=== PATIENT | male | born 1945 | race Caucasian/White ===

== ENCOUNTER 2019-05-21 11:04 | Inpatient (IN) | payer MEDICARE, SELFPAY ==
[2019-05-21] VITALS (11 sets, daily range): BP systolic 133–166; BP diastolic 51–95; PULSE 59–88; RESP 18–20; TEMP 36.2–36.4; O2SAT 91–97; BMI 32.0
--- NOTE | ~2019-05-21 | XR_ITS ---
EXAMINATION: XR chest 1V portable DATE: 05/21/2019 12:25 INDICATION: Shortness of breath. TECHNIQUE: A single frontal view of the chest was obtained. COMPARISON: None. FINDINGS: A calcified right lung nodule and calcified right hilar lymph nodes are consistent with old granulomatous disease. There is mild atelectasis in the lower lung zones. No pleural effusion or pne umothorax. The heart size is normal. IMPRESSION: 1. Mild atelectasis in the lower lung zones. Reviewed, dictated and finalized at location A. HANGER
--- NOTE | ~2019-05-21 | CT_ITS ---
EXAMINATION: CT brain wo con DATE: 05/21/2019 12:24 INDICATION: Confusion. TECHNIQUE: Computed tomography (CT) of the head was performed without intravenous contrast. The mA wa s adjusted according to patient size. Iterative reconstruction technique was employed. The dose-lengt h product was 605.33 mGy-cm. COMPARISON: None FINDINGS: There are prominent perivascular spaces in the right parietal deep white matter. There is a 2.0 x 1.3 cm arachnoid cyst anterior to left cerebellar hemisphere. There are scattered areas of low attenuation in the cerebral white matter, which is within normal limits for the patient's age. There is no intracranial hemorrhage, acute infarction, or abnormal intracranial mass lesion. The ventricle s are normal in size. There are likely changes of ocular lens replacement surgeries. There is mild mu cosal thickening in the paranasal sinuses. The mastoid air cells are normal. IMPRESSION: 1. No acute intracranial pathology. Reviewed, dictated and finalized at location A. H CHEMIST
--- NOTE | ~2019-05-21 | MR_ITS ---
EXAMINATION: MR brain/brain stem wo con DATE: 05/23/2019 08:20 INDICATION: Acute confusion. Delayed speech and word searching. TECHNIQUE: Magnetic resonance imaging (MRI) of the brain and brainstem was performed without intraven ous contrast. Sequences included sagittal and axial T1-weighted SE, axial diffusion-weighted FS SE, a xial T2*-weighted GRE, axial T2-weighted FLAIR, and axial T2-weighted FSE. Apparent diffusion coeffic ient (ADC) maps were created. COMPARISON: Head CT dated 05/21/2019 FINDINGS: There are no areas of restricted diffusion to suggest acute infarction. Small old lacunar infarct in the right para trigonal white matter No intracranial hemorrhage or abnormal intracranial mass lesion. There are scattered areas of nonspecific increased T2-weighted signal intensity in the cerebral whit e matter, predominantly involving the deep and periventricular white matter. There are no intraparenc hymal signal abnormalities seen on the other pulse sequences. The ventricles are symmetric and normal in size. There are no abnormal extra-axial fluid collections. Flow voids are seen in the cerebral ar teries on the T2-weighted sequences consistent with their expected patency. Right vertebral artery is dominant. Changes of bilateral intraocular lens replacement. Mild mucosal thickening the bilateral e thmoid sinuses. Visualized orbits and soft tissues are unremarkable. IMPRESSION: 1. Small old lacunar infarct in the right peritrigonal white matter. No acute intracranial process. Reviewed, dictated and finalized at location A. H HEAD MAKER IMPRESSION: 1. Small old lacunar infarct in the right peritrigonal white matter. No acute i ntracranial process.
--- NOTE | 2019-05-21 11:15 | ECG_ITS ---
Measurements Intervals [place] Rate: 60 P: 27 KS: 179 QRS: -19 QRSD: 109 T: 5 QT: 404 QTc: 405 Interpretive Statements SINUS RHYTHM LOW QRS VOLTAGE IN PRECORDIAL LEADS ANTEROSEPTAL INFARCT, AGE INDETERMINATE BORDERLINE ST-T WAVE ABNORMALITY- INFERIOR LEADS ABNORMAL ECG Electronically Signed On 05-21-2019 11:53:01 TELETYPESETTER by Josh Aldridge D.O.
[2019-05-21 11:32] LABS: Basophils Absolute Auto 0.09 K/mm3 (0.00-0.10); Eosinophils Absolute Auto 0.16 K/mm3 (0.02-0.50); Eosinophils Percent Auto 1.7 % (1.0-6.0); Hematocrit 41.3 % (37.0-46.0); Hemoglobin 13.5 g/dL (12.4-15.3); Immature Granulocyte Absolute 0.09 K/mm3 (0.00-0.00); Lymphocytes Absolute Auto 0.95 K/mm3 (1.10-4.50); Lymphocytes Percent Auto 10.3 % (18.0-42.0); Mean Corpuscular HGB Conc 32.7 g/dL (32.0-36.0); Mean Corpuscular Hemoglobin 31.4 pg (27.0-31.0); Mean Platelet Volume 9.4 fl (8.7-11.0); Monocytes Absolute Auto 0.89 K/mm3 (0.10-0.90); Monocytes Percent Auto 9.6 % (2.0-11.0); Neutrophils Absolute Auto 7.1 K/mm3 (1.7-7.2); Neutrophils Percent Auto 76.4 % (50.0-70.0); Platelet Count Result 292 K/mm3 (150-420); White Blood Count 9.3 K/mm3 (4.8-10.8)
[2019-05-21 11:46] LABS: Partial Thromboplastin Time 23.8 SEC (22.3-31.6); Prothrombin Time 10.4 Seconds (9.64-11.0)
[2019-05-21 11:56] LABS: Alanine Aminotransferase 14 U/L (16-63); Albumin Level 3.6 g/dL (3.4-5.0); Alkaline Phosphatase 110 U/L (46-116); Anion Gap 13.9 mmol/L (7-16); Aspartate Amino Transferase 14 U/L (15-37); Bilirubin,Total 0.5 mg/dL (0.00-1.00); Blood Urea Nitrogen 31 mg/dL (7-18); Calcium 10.4 mg/dL (8.5-10.1); Carbon Dioxide 25 mmol/L (21-32); Chloride 107 mmol/L (98-108); Estimated Glomerular Filt Rate 34; Glucose 131 mg/dL (70-99); Magnesium 2.1 mg/dL (1.8-2.4); Osmolality Calculated 300 mOsm/kg (285-295); Potassium 4.9 mmol/L (3.5-5.1); Sodium 141 mmol/L (136-145); Thyroid Stimulating Hormone 2.74 uIU/mL (0.36-3.74); Total Protein 6.6 g/dL (6.4-8.2)
[2019-05-21 11:58] LABS: BNP 26.7 pg/mL (0-100)
[2019-05-21 11:59] LABS: Troponin I < 0.02 ng/mL (0.00-0.056)
[2019-05-21] MEDS: SODIUM CHLORIDE 0.9% IV 1,000 ML 999 ML IV CONT (12:33)
--- NOTE | 2019-05-21 13:05 | ED.FALL ---
HPI - Fall General Chief Complaint: Fall Stated Complaint: AMB Time Seen by Provider: 05/21/19 11:08 Related Data Home Medications Medication Instructions Recorded Confirmed Dialyvite Vitamin D 05/21/19 allopurinol 300 mg PO DAILY 05/21/19 05/21/19 ascorbic acid (vitamin C) [Vitamin 1 g PO DAILY 05/21/19 05/21/19 C] aspirin 81 mg PO DAILY 05/21/19 05/21/19 carvedilol 25 mg PO Q12H 05/21/19 05/21/19 levothyroxine 75 mcg PO DAILY 05/21/19 05/21/19 lisinopril 10 mg PO BID 05/21/19 05/21/19 magnesium 400 mg PO DAILY 05/21/19 05/21/19 ranitidine HCl 300 mg PO BID 05/21/19 05/21/19 vitamin B complex [B 1 tablet PO DAILY 05/21/19 05/21/19 Complex-Vitamin B12] Allergies Allergy/AdvReac Type Severity Reaction Status Date / Time quinidine Allergy Hives Verified 05/21/19 12:52 Review of Systems Review of Systems: All systems reviewed & are unremarkable except as noted in HPI and below PMFSH Past Medical History Medical History GERD (gastroesophageal reflux disease) HTN (hypertension) Hypothyroidism Exam Const: General: no acute distress and confused Nutritional Appearance: well nourished Orientation/consciousness: oriented x3 HENMT: Head: normal to inspection Eyes: Conjunctivae: conjunctivae normal Neck: Neck: normal visual inspection, no lymphadenopathy and lymphadenopathy Chest: Chest palpation & inspection: normal inspection of the chest Resp: Effort & Inspection: normal respiratory effort Auscultation: clear to auscultation bilaterally Cardio: Rate: regular rate and bradycardic Rhythm: regular rhythm GI: Auscultation: normal bowel sounds : Testes: normal Skin: Rashes: no rashes Neuro: General: oriented x3, moves all extremities, no meningeal signs, no focal motor deficits and CN's II-XI intact bilaterally Speech: normal speech Extrem: General: normal to inspection and no pedal edema Psych: Mental Status: mental status grossly normal Affect: normal affect Attitude: cooperative Thought content: Yes normal Course Vital Signs Vital signs: Vital Signs Temperature 36.2 C L 05/21/19 11:05 Pulse Rate 64 05/21/19 11:05 Respiratory Rate 18 05/21/19 11:05 Blood Pressure 151/88 H 05/21/19 11:05 Pulse Oximetry 91 05/21/19 11:05 Temperature 36.2 C L 05/21/19 11:05 Pulse Rate 64 05/21/19 11:05 Respiratory Rate 18 05/21/19 11:05 Blood Pressure 151/88 H 05/21/19 11:05 Pulse Oximetry 91 05/21/19 11:05 MDM - Fall Differential Diagnosis Differential diagnosis: Likely syncope Lab Data Result diagrams: 05/21/19 11:27 05/21/19 11:27 Labs: Lab Results 05/21/19 05/21/19 05/21/19 Range/Units 11:27 11:27 11:27 WBC 9.3 (4.8-10.8) K/mm3 RBC 4.30 L (4.70-6.10) M/mm3 Hgb 13.5 (12.4-15.3) g/dL Hct 41.3 (37.0-46.0) % MCV 96.0 (78.0-102.0) fL MCH 31.4 H (27.0-31.0) pg MCHC 32.7 (32.0-36.0) g/dL RDW 14.0 (11.6-14.4) % Plt Count 292 (150-420) K/mm3 MPV 9.4 (8.7-11.0) fl Immature Gran % (Auto) 1.0 H (0.0-0.0) % Neut % (Auto) 76.4 H (50.0-70.0) % Lymph % (Auto) 10.3 L (18.0-42.0) % [place] % (Auto) 9.6 (2.0-11.0) % Eos % (Auto) 1.7 (1.0-6.0) % Baso % (Auto) 1.0 (0.0-1.0) % Lymph # (Auto) 0.95 L (1.10-4.50) K/mm3 [place] # (Auto) 0.89 (0.10-0.90) K/mm3 Eos # (Auto) 0.16 (0.02-0.50) K/mm3 Baso # (Auto) 0.09 (0.00-0.10) K/mm3 Abs Immat Gran (auto) 0.09 H (0.00-0.00) K/mm3 Absolute Neuts (auto) 7.1 (1.7-7.2) K/mm3 Absolute Nucleated RBC 0.00 (0.00-0.00) K/mm3 Nucleated RBC % 0.0 (0-0.0) % PT 10.4 (9.64-11.0) Seconds INR 1.0 APTT 23.8 (22.3-31.6) SEC Sodium 141 (136-145) mmol/L Potassium 4.9 (3.5-5.1) mmol/L Chloride 107 (98-108) mmol/L Carbon Dioxide 25 (21-32) mmol/L Anion Gap 13.9 (7-16) mmol/L BUN 31 H (7-18) mg/dL
--- NOTE | 2019-05-21 13:25 | PC.NURSE ---
IV FLUIDS INFUSING TO FLOOR
[2019-05-21 13:53] LABS: Appearance Urine Clear (Clear); Bilirubin Urine Negative (Negative); Blood Urine Negative (Negative); Color Urine Yellow (Yellow); Glucose Urine UA Negative (Negative); Ketones Urine Negative (Negative); Leukocyte Esterase Ur Negative LEU/UL (Negative); Nitrate Urine Negative (Negative); Protein Urine 2+ (Negative); Specific Grav Ur >= 1.030 (1.010-1.020); Urobilinogen Urine 0.2 mg/dL (0.2-1.0)
[2019-05-21 14:01] LABS: Add Urine Microscopic? YES
[2019-05-21 14:02] LABS: Bacteria Urine 2+ /hpf; Mucus Urine Heavy /lpf; RBC Urine 0-2 /hpf (0-2); Squamous Epithelial Cell Urine None seen /hpf (Few)
--- NOTE | 2019-05-21 14:09 | ECG_ITS ---
Measurements Intervals [place] Rate: 64 P: 42 SD: 182 QRS: 4 QRSD: 112 T: 20 QT: 395 QTc: 410 Interpretive Statements SINUS RHYTHM ANTEROSEPTAL INFARCT, AGE INDETERMINATE BORDERLINE T WAVE ABNORMALITY- INFERIOR LEADS ABNORMAL ECG Electronically Signed On 05-21-2019 15:14:35 ELECTRICAL DESIGNER DRAFTER by Josh Aldridge D.O.
[2019-05-21 14:24] LABS: Creatine Kinase 36 U/L (39-308)
[2019-05-21 14:26] LABS: Troponin I < 0.02 ng/mL (0.00-0.056)
--- NOTE | 2019-05-21 14:26 | PM.IMHP ---
H&P: HPI History of Present Illness Chief complaint: AMB Narrative: Sukhjinder Kennedy is a 73 year old male that was admitted after he fell to his knees today. On Saturday, while outside, he stood up with a frozen water bowel and grunted as though he was in pain or had difficulty, but when his pushed him further with questions he had no answers. He has been acutely confused for the last 4-5 days. No history of confusion or dementia prior to this week. He and his deny any recent LOC, CVA, TIA, fall or trauma. His stated that in 1999 he had an MRI that only showed a past TIA. He was not placed on any new medications at that time. He is also complaining of having diarrhea for the last 3 weeks and denies having any antibiotic therapy in the last 2-3 months. He has known history of hyperglycemia and hypercalemia. . He has been placed on Telemetry, timed EKGs and timed Troponins, found to have a UTI, blood/sputum/urine culture pending. Ordered lipid panels, LFTs, glucose monitoring, He has no cardiac history, he has no stents, does not see a Bottle Machine Operator, but does see his PCP Dr. Gonzalez. Review of Systems Review of Systems: Narrative: His reports that On Saturday (4 days ago) , he did not know where he was. All systems reviewed & are unremarkable except as noted in HPI and below Constitutional: Constitutional: Reports as per HPI, Reports body ache(s), Denies chills, Reports fatigue and Reports weakness Eyes: Eyes: Reports as per HPI ENT: Reports system reviewed and no additional complaints, except as documented, Reports as per HPI, Reports hearing normal and Denies nasal congestion Cardiovascular: Cardiovascular: Reports as per HPI, Reports no additional cardiovascular complaints, Denies chest pain, Denies diaphoresis, Denies pedal edema, Denies leg edema, Denies lightheadedness and Denies palpitations Respiratory: Respiratory: Reports as per HPI, Reports no additional respiratory complaints, Denies chest congestion, Denies cough, Denies hemoptysis, Denies dyspnea on exertion and Denies wheezing Gastrointestinal: Gastrointestinal: Reports as per HPI and Reports no additional gastrointestinal complaints Genitourinary: Genitourinary: Reports no additional male genitourinary complaints and Reports as per HPI Musculoskeletal: Musculoskeletal: Reports no additional musculoskeletal complaints and Reports as per HPI Comments: Weakness Integumentary/Breasts: Skin/Breast: Reports system reviewed and no additional complaints, except as docu and Reports as per HPI Neurologic: Reports system reviewed and no additional complaints, except as documented, Reports as per HPI, Reports abnormal gait, Reports confusion and Reports headache(s) Psychiatric: Psychiatric: Reports as per HPI, Denies anxiety, Reports behavioral changes, Reports confusion, Denies depression, Denies homicidal ideation and Denies suicidal ideation Endocrine: Endocrine: Reports as per HPI Hematologic/Lymphatic: Hematologic/Lymphatic: Reports as per HPI Comments: pallor PMFSH Family History Family History (Updated 05/21/19 @ 17:08 by Daphnie Faria NP) Mother Breast cancer Father Diabetes mellitus Social History Social History Smoking status: Former smoker Tobacco type: cigarettes Substance use: never Gender identity (if verbalized by the patient): Male Spiritual care concerns: No Agree to blood products: Yes Meds Home Medications and Allergies Home Medications Medication Instructions Recorded Confirmed Type Dialyvite Vitamin D 05/21/19 History allopurinol 300 mg PO DAILY 05/21/19 05/21/19 History ascorbic acid (vitamin C) [Vitamin 1 g PO DAILY 05/21/19 05/21/19 History C] aspirin 81 mg PO DAILY 05/21/19 05/21/19 History carvedilol 25 mg PO Q12H 05/21/19 05/21/19 History levothyroxine 75 mcg PO DAILY 05/21/19 05/21/19 History lisinopril 10 mg PO BID 05/21/19 05/21/19 History magnesium 40
[2019-05-21 14:27] LABS: Phosphorus 4.1 mg/dL (2.6-4.7)
--- NOTE | 2019-05-21 14:41 | ADMGEN ---
This patient, Sukhjinder Kennedy, was admitted to 2nd Floor Room 202-2. Patient/family oriented to hospital policies and general routines including ID bracelet, bed and alarms, visiting hours, pain management, procedures, bathroom and other care routines, personal items, smoking policy, room service/diet, and visiting hours. Valuables list has been completed. Information on how to activate the Rapid Response Team has been discussed. Patient/Family are encouraged to report perceived risks to care and to ask questions if they do not understand what they are told or what they should do.
--- NOTE | 2019-05-21 15:35 | PC.NURSE ---
Pt. and another family member in room with pt. Pt. resting in bed with hob elevated. IV fluids infusing per order. Pt. health history discussed with pt. and medication list obtained from . Pt. states he is feeling a little better. Denies any needs at this time.
[2019-05-21 15:38] LABS: Troponin I < 0.02 ng/mL (0.00-0.056)
[2019-05-21 17:44] LABS: Hemoglobin A1C 5.9 % (<5.7)
[2019-05-21 17:49] LABS: Troponin I < 0.02 ng/mL (0.00-0.056)
[2019-05-21 17:49] LABS: Ammonia < 10 umol/L (11-32)
[2019-05-21 17:50] LABS: Cholesterol 169 mg/dL (0-200); HDL Direct 23 mg/dL (40-60); LDL Cholesterol Calculated 111 mg/dL (<130); Triglycerides 176 mg/dL (0-150)
[2019-05-21 18:16] LABS: Base Excess ABG -3.8 mmol/L (0-2); HCO3 ABG 22.4 mmol/L (23-29); Oxygen Content ABG 18.7 %vol (16.0-22.0); Oxygen Saturation ABG 97.2 % (95-97); Oxyhemoglobin 95.4 % (94-100); PO2 ABG 90.8 mmHg (75-85); Total Hemoglobin 13.9 g/dL; pH ABG 7.32 (7.35-7.45)
[2019-05-21 18:17] LABS: Device NASAL CANNULA; Modified Allen's Test Pass; Site Drawn RIGHT RADIAL
[2019-05-21] MEDS: IPRATROPIUM 0.5 MG/ALBUTEROL SULFATE 2.5 MG AMPUL.NEB 3 ML INHALATION (18:43)
[2019-05-21 18:46] LABS: Glucose Point of Care 121 (65-105)
--- NOTE | 2019-05-21 21:15 | PC.NURSE ---
Addendum entered by Sophie Hollis RN 05/21/19 23:16: the time for this occurrence was at 2014. Original Note: pt found standing beside bed with blood on the bed and floor, pt was attempting to use the urinal and states he forgot he had an iv in place. pt cleaned, linens changed, iv site bandaged, and pt assisted with urinal
[2019-05-21] MEDS: lisinopriL 10 MG TABLET PO (21:17)
[2019-05-21] MEDS: FAMOTIDINE 20 MG TABLET 40 MG PO (21:17)
[2019-05-21] MEDS: carvediloL 12.5 MG TABLET 25 MG PO (21:17)
--- NOTE | 2019-05-21 23:00 | PC.NURSE ---
pt was becoming more confused, moved to room 206 for closer observation
[2019-05-22] VITALS (13 sets, daily range): BP systolic 88–142; BP diastolic 53–78; PULSE 60–91; RESP 16–20; TEMP 36.2–36.8; O2SAT 92–96
[2019-05-22] MEDS: IPRATROPIUM 0.5 MG/ALBUTEROL SULFATE 2.5 MG AMPUL.NEB 3 ML INHALATION ×3 (00:39→19:34)
[2019-05-22 06:12] LABS: Folic Acid 12.5 ng/mL (8.6->20); Vitamin B12 1456 pg/mL (193-986)
[2019-05-22 06:22] LABS: Basophils Absolute Auto 0.05 K/mm3 (0.00-0.10); Basophils Percent Auto 0.6 % (0.0-1.0); Eosinophils Absolute Auto 0.14 K/mm3 (0.02-0.50); Eosinophils Percent Auto 1.6 % (1.0-6.0); Hematocrit 37.8 % (37.0-46.0); Hemoglobin 12.1 g/dL (12.4-15.3); Immature Granulocyte Absolute 0.09 K/mm3 (0.00-0.00); Lymphocytes Absolute Auto 1.14 K/mm3 (1.10-4.50); Lymphocytes Percent Auto 13.1 % (18.0-42.0); Mean Corpuscular Hemoglobin 31.2 pg (27.0-31.0); Mean Corpuscular Volume 97.4 fL (78.0-102.0); Mean Platelet Volume 10.2 fl (8.7-11.0); Monocytes Absolute Auto 1.07 K/mm3 (0.10-0.90); Monocytes Percent Auto 12.3 % (2.0-11.0); Neutrophils Absolute Auto 6.2 K/mm3 (1.7-7.2); Neutrophils Percent Auto 71.4 % (50.0-70.0); Platelet Count Result 277 K/mm3 (150-420); Red Blood Count 3.88 M/mm3 (4.70-6.10); White Blood Count 8.7 K/mm3 (4.8-10.8)
[2019-05-22 06:51] LABS: Alanine Aminotransferase 12 U/L (16-63); Albumin Level 3.2 g/dL (3.4-5.0); Alkaline Phosphatase 95 U/L (46-116); Aspartate Amino Transferase 10 U/L (15-37); Bilirubin,Total 0.3 mg/dL (0.00-1.00); Blood Urea Nitrogen 30 mg/dL (7-18); Carbon Dioxide 26 mmol/L (21-32); Chloride 107 mmol/L (98-108); Estimated CRCL calculation 40 ml/min; Estimated Glomerular Filt Rate 35; Glucose 105 mg/dL (70-99); Osmolality Calculated 298 mOsm/kg (285-295); Sodium 141 mmol/L (136-145)
[2019-05-22] MEDS: lisinopriL 10 MG TABLET PO ×2 (08:21→20:52)
[2019-05-22] MEDS: LEVOTHYROXINE SODIUM 75 MCG TABLET PO (08:21)
[2019-05-22] MEDS: carvediloL 12.5 MG TABLET 25 MG PO ×2 (08:21→20:52)
[2019-05-22] MEDS: FAMOTIDINE 20 MG TABLET 40 MG PO ×2 (08:21→20:52)
[2019-05-22] MEDS: ATORVASTATIN 10 MG TABLET 20 MG PO (08:22)
[2019-05-22] MEDS: allopurinoL 300 MG TABLET PO (08:22)
[2019-05-22] MEDS: ASPIRIN 81 MG CHEWABLE TABLET PO (08:22)
[2019-05-22] MEDS: MAGNESIUM OXIDE 400 MG TABLET PO (08:23)
[2019-05-22] MEDS: VITAMIN B COMPLEX CAPSULE 1 CAP PO (08:23)
--- NOTE | 2019-05-22 09:15 | PCRCNOTE ---
PT. SITTING IN CHAIR..PULLED ABOUT 1500 ON INCENTIVE...SEEMS TO UNDERSTAND WELL...TOLD TO DO THIS [employer] PER MELANY
--- NOTE | 2019-05-22 13:21 | ECG_ITS ---
Measurements Intervals [place] Rate: 62 P: 38 [place]: 177 QRS: -11 QRSD: 104 T: 28 QT: 388 QTc: 397 Interpretive Statements SINUS RHYTHM LOW QRS VOLTAGE IN PRECORDIAL LEADS ANTEROSEPTAL INFARCT, AGE INDETERMINATE BORDERLINE T WAVE ABNORMALITY- INF/LAT LEADS BASELINE WANDER- V4-V6 ABNORMAL ECG Electronically Signed On 05-22-2019 15:48:37 ADOBE ARCHITECT by Josh Aldridge D.O.
--- NOTE | 2019-05-22 14:29 | PM.IMPN ---
Progress Note: A&P Assessment and Plan (1) UTI (urinary tract infection): Onset Date: ~05/21/19 <Daphnie Faria NP - Last Filed: 05/23/19 00:01> Code(s): N39.0 - Urinary tract infection, site not specified <Daphnie Faria NP - Last Filed: 05/23/19 00:01> Status: Acute <Daphnie Faria NP - Last Filed: 05/23/19 00:01> Assessment and Plan: Urine analysis is 2+ for bacteria, 7-9 WBC - showing evidence of UTI. urine / blood culture showed no growth IVFs able to stop, as patient is toleratling Oral fluids now and encouraged by nursing staff. started on IV Rocephin - continued today for day 2 of IV Rocephin tylenol for fevers <Daphnie Faria NP - Last Filed: 05/23/19 00:01> (2) Hypercalcemia: Onset Date: Unknown <Daphnie Faria NP - Last Filed: 05/23/19 00:01> Code(s): E83.52 - Hypercalcemia <Daphnie Faria NP - Last Filed: 05/23/19 00:01> Status: Acute <Daphnie Faria NP - Last Filed: 05/23/19 00:01> Assessment and Plan: checking PTH and Calcium levels radiology studies ordered. IVFs Telemetry added Vital signs Q4 hours denies having any current pain or leg cramps; but he is complaining of having life-affecting intermittent leg cramps while at home, especially posterior thighs bilaterally, no necessarily associated with ambulation or activity or standing. electrolytes are stable and WNL - except for his hypercalcemia (Ca 10.4 at admission, 10.0 today). He needs to have an AURORA and Venous Dopplers of his lower extremities after discharge and discuss with his PCP at F/U getting a Referral for a consultation with an Orthopedic surgeon and/or Vascular Surgeon . He is consideridng seeing a General Surgeon at [facility] to have his parathyroid re-evaluated. I encouarge him to follow up on that after discharge. <Daphnie Faria NP - Last Filed: 05/23/19 00:01> (3) Near syncope: Onset Date: ~05/21/19 <Daphnie Faria NP - Last Filed: 05/23/19 00:01> Code(s): R55 - Syncope and collapse <Daphnie Faria NP - Last Filed: 05/23/19 00:01> Status: Acute <Daphnie Faria NP - Last Filed: 05/23/19 00:01> Assessment and Plan: Denies LOC, denies fall, dropped to his knees earlier today. likely related to hypoglycemia or hyperglycemia or UTI and/or Dehydration. acutely confused for the last 4-5 days. complaining of having diarrhea for the last 3 weeks and denies having any antibiotic therapy in the last 2-3 months. known history of hyperglycemia and hypercalemia. placed on Telemetry, timed EKGs timed Troponins, blood/sputum/urine culture pending Ordered lipid panels LFTs glucose monitoring ordered ECHO <Daphnie Faria NP - Last Filed: 05/23/19 00:01> (4) Confusion: Code(s): R41.0 - Disorientation, unspecified <Daphnie Faria NP - Last Filed: 05/23/19 00:01> Status: Acute <Daphnie Faria NP - Last Filed: 05/23/19 00:01> Assessment and Plan: Possibly related to hypoglycemia or hyperglycemia or UTI and/or Dehydration or Dementia. slightly acidotic ABG compensating for his lethargy, Ammonia WNL, Vitamin D levels pending, cardiac panels WNL, and LFTs are not elevated. . PT/OT evaluation OT SLUMS or Mini-mental evaluation fall risk already on 81 mg ASA, increased to 325 mg asa daily . Added protonix PO. not currently on Statin, checking lipid panel and will discuss starting Statin with patient and prior to discharge. <Daphnie Faria NP - Last Filed: 05/23/19 00:01> (5) Diarrhea: Code(s): R19.7 - Diarrhea, unspecified <Daphnie Faria NP - Last Filed: 05/23/19 00:01> Status: Acute <Daphnie Faria NP - Last Filed: 05/23/19 00:01> Assessment and Plan: reports over the last 3 weeks. also reports poor appetite - that he is eating only 1/3 to 1/2 of his meals. checking Mag, Phos, electrolytes. intake and output monit
--- NOTE | 2019-05-22 15:25 | ECHO_ITS ---
Patient Info Name: Sukhjinder Kennedy Age: 73 years : 1945 Gender: Male Ht: 72 in Wt: 235 lbs BSA: 2.36 m2 HR: 59 bpm BP: 120 / 59 mmHg Technical Quality: Fair Exam Date: 05/22/2019 2:37 PM Exam Location: [facility] Patient Status: Inpatient Admit Date: 05/21/2019 Staff Ordering Physician: Daphnie Faria NP Logging Truck Driver: Catalino Magdaleno RDCS, RT Attending Provider: Frank Ramirez MD Referring Physician: Bienvenido GALEAS; Exam Type: CA echo dop color flow w con Study Info Indications - ABNORMAL EKG R94.31 - Abnormal electrocardiogram ECG EKG Complete two-dimensional, color flow and Doppler transthoracic echocardiogram is performed. Summary 1. Left ventricular chamber dimension is normal. 2. Consider apical hypokinesis in apical 4 chamber view. 3. Left ventricular systolic function is normal, estimated at 55-60%. 4. There is mildly increased left ventricular wall thickness. 5. The left ventricular diastolic function is grade I diastolic dysfunction. 6. E/e' 6 is not elevated. 7. Left atrial chamber dimension is mildly enlarged. 8. There is moderate aortic valve sclerosis. 9. Dilated inferior vena cava with >50% collapse upon inspiration consistent with elevated right atrial pressure, 10 mmHg. Left Ventricle E/e' 6 is not elevated. Consider apical hypokinesis in apical 4 chamber view. Left ventricular chamber dimension is normal. Left ventricular systolic function is normal, estimated at 55-60%. There is mildly increased left ventricular wall thickness. The left ventricular diastolic function is grade I diastolic dysfunction. Right Ventricle Right ventricular chamber dimension is normal. Right ventricular systolic function is normal. Left Atria Left atrial chamber dimension is mildly enlarged. Right Atria Right atrial chamber dimension is normal. Aortic Valve The aortic valve is trileaflet. There is moderate aortic valve sclerosis. There is no aortic valve stenosis. There is no aortic valve regurgitation. Pulmonic Valve There is no pulmonic regurgitation. Mitral Valve There is no mitral valve stenosis. There is no mitral valve regurgitation. Tricuspid Valve There is no tricuspid valve regurgitation. Pericardium/Pleural There is no pericardial effusion. Inferior Vena Cava Dilated inferior vena cava with >50% collapse upon inspiration consistent with elevated right atrial pressure, 10 mmHg. Aorta The aortic root size at the sinus of Valsalva is normal. Left Ventricular Outflow Tract Name Value Normal LVOT 2D LVOT Diameter 2.16 cm LVOT Doppler LVOT Peak Gradient 5 mmHg LVOT Mean Gradient 3 mmHg LVOT VTI 22.60 cm LVOT VTI/AV VTI Ratio 0.89 LVOT Stroke Volume 82.90 ml Pulmonic Valve Name Value Normal PV Doppler
[2019-05-22] MEDS: PANTOPRAZOLE 40 MG TABLET PO (15:32)
[2019-05-22] MEDS: ONDANSETRON INJ 4 MG/2 ML VIAL IV PUSH (15:44)
--- NOTE | 2019-05-22 15:45 | PC.NURSE ---
Pt. reporting he has hiccups, states he feels like he might throw up. Nurse left room to get Zofran to administer to pt. Pt. had moderate emesis before nurse could give antiemetic. Clean gown and blanket applied to pt. Bath wipes used to clean pt. up. Pt. tolerated IV push zofran well. HOB elevated. Pt. states he feels better after having emesis, states nausea came on suddenly. Denies any needs at this time. cont. at pt. bedside. MAIL TECHNICIAN Daphnie aware or emesis.
[2019-05-22] MEDS: SENNA/DOCUSATE SODIUM TABLET 1 TAB PO (20:52)
[2019-05-23] VITALS (15 sets, daily range): BP systolic 116–142; BP diastolic 58–81; PULSE 57–93; RESP 16–18; TEMP 36.2–36.7; O2SAT 92–97
[2019-05-23] MEDS: IPRATROPIUM 0.5 MG/ALBUTEROL SULFATE 2.5 MG AMPUL.NEB 3 ML INHALATION ×4 (00:14→18:18)
--- NOTE | 2019-05-23 03:06 | PC.NURSE ---
pt sleeping, respirations even and regular, no evidence of distress noted
[2019-05-23 05:41] LABS: Hematocrit 36.5 % (37.0-46.0); Hemoglobin 11.7 g/dL (12.4-15.3); Mean Corpuscular HGB Conc 32.1 g/dL (32.0-36.0); Mean Corpuscular Hemoglobin 31.4 pg (27.0-31.0); Mean Corpuscular Volume 97.9 fL (78.0-102.0); Platelet Count Result 273 K/mm3 (150-420); Red Blood Count 3.73 M/mm3 (4.70-6.10); White Blood Count 6.5 K/mm3 (4.8-10.8)
[2019-05-23 05:58] LABS: Anion Gap 9.2 mmol/L (7-16); Blood Urea Nitrogen 31 mg/dL (7-18); Calcium 10.1 mg/dL (8.5-10.1); Carbon Dioxide 28 mmol/L (21-32); Chloride 107 mmol/L (98-108); Estimated CRCL calculation 36 ml/min; Estimated Glomerular Filt Rate 31; Glucose 100 mg/dL (70-99); Osmolality Calculated 296 mOsm/kg (285-295); Potassium 4.2 mmol/L (3.5-5.1); Sodium 140 mmol/L (136-145)
[2019-05-23] MEDS: ATORVASTATIN 10 MG TABLET 20 MG PO (09:15)
[2019-05-23] MEDS: FAMOTIDINE 20 MG TABLET 40 MG PO ×2 (09:15→20:29)
[2019-05-23] MEDS: allopurinoL 300 MG TABLET PO (09:16)
[2019-05-23] MEDS: lisinopriL 10 MG TABLET PO ×2 (09:16→20:28)
[2019-05-23] MEDS: MAGNESIUM OXIDE 400 MG TABLET PO (09:16)
[2019-05-23] MEDS: LEVOTHYROXINE SODIUM 75 MCG TABLET PO (09:16)
[2019-05-23] MEDS: PANTOPRAZOLE 40 MG TABLET PO (09:16)
[2019-05-23] MEDS: VITAMIN B COMPLEX CAPSULE 1 CAP PO (09:16)
[2019-05-23] MEDS: carvediloL 12.5 MG TABLET 25 MG PO ×2 (09:16→20:29)
--- NOTE | 2019-05-23 10:10 | PM.IMPN ---
Progress Note: A&P Assessment and Plan (1) Acute renal failure: Onset Date: ~05/21/19 Code(s): N17.9 - Acute kidney failure, unspecified Status: Acute Assessment and Plan: WORSENING Renal Function with Severe Weakness significantly affecting safety - Admitted patient. Due to Dehydration versus SideEffect of Medication. Baseline Creatinine was normal (0.7-1.3) prior to this admission, Creatinine 1.94 at admission, then 1.89, and 2.10 today. patient is severely dehydrated and likely has been for some time at home his confusion has improved but he has proven unable to keep himself hydrated, his weakness remains severe and he can now at least move his arms to feed and hydrate himself; his legs and otherwise remains very weak/unsteady/and imbalanced. Will restart his IV hydration. Trying to get past labs and if he ever had an ECHo done from his PCP office (patient has never been admitted to hospital prior and rarely needs to see a physician/rarely sick per ) He is now able to get the cup / mug to himself, but due to his Confusion he doesn't remember to drink or feel thirsty enough to prompt himself to drink. IVFs restarted. Telemetry IV hydration, nursing staff encouraging and assisting with oral hydration avoiding Nephrotoxic medications and avoiding IV contrast dye Baseline Creatinine was normal (0.7-1.3) prior to this admission, Creatinine 1.94 at admission, then 1.89, and 2.10 today. patient is severely dehydrated and likely has been for some time at home his confusion has improved but he has proven unable to keep himself hydrated, his weakness remains severe and he can now at least move his arms to feed and hydrate himself; his legs and otherwise remains very weak/unsteady/and imbalanced. Will restart his IV hydration. changed Allopurinol from 300mg daily to 200mg daily; changed Lipitor from 20mg daily to 10 mg daily. avoiding Nephrotoxic medications and avoiding IV contrast dye (2) UTI (urinary tract infection): Onset Date: ~05/21/19 Code(s): N39.0 - Urinary tract infection, site not specified Status: Acute Assessment and Plan: Urine analysis is 2+ for bacteria, 7-9 WBC - showing evidence of UTI. urine / blood culture showed no growth ?? IVFs restarted for overnight, as patient is not keeping up with oral hydration. Continued today for day 3 of IV Rocephin, then it will be discontinued. PRN tylenol for fevers (3) Hypercalcemia: Onset Date: Unknown Code(s): E83.52 - Hypercalcemia Status: Acute Assessment and Plan: checking PTH and Calcium levels radiology studies ordered. IVFs Telemetry added Vital signs Q4 hours denies having any current pain or leg cramps; but he is complaining of having life-affecting intermittent leg cramps while at home, especially posterior thighs bilaterally, no necessarily associated with ambulation or activity or standing. electrolytes are stable and WNL - except for his hypercalcemia (Ca 10.4 at admission, 10.0 today). He needs to have an AURORA and Venous Dopplers of his lower extremities after discharge and discuss with his PCP at [facility] getting a Referral for a consultation with an Orthopedic surgeon and/or Vascular Surgeon . He is consideridng seeing a General Surgeon at [facility] to have his parathyroid re-evaluated. I encouarge him to follow up on that after discharge. (4) Near syncope: Onset Date: ~05/21/19 Code(s): R55 - Syncope and collapse Status: Acute Assessment and Plan: Denies LOC, denies fall, dropped to his knees earlier today. likely related to hypoglycemia or hyperglycemia or UTI and/or Dehydration. acutely confused for the last 4-5 days. complaining of having diarrhea for the last 3 weeks and denies having any antibiotic therapy in the last 2-3 months. known history of hyperglycemia and hypercalemia. placed on Telemetry, timed EKGs timed Troponins, blood/sputum/urine culture pending Orde
[2019-05-23 11:35] LABS: BNP 28 pg/mL (0-100)
[2019-05-23] MEDS: SODIUM CHLORIDE 0.45% 1,000 ML 150 ML IV CONT ×2 (11:54→19:23)
[2019-05-23] MEDS: DONEPEZIL HCL 5 MG TABLET PO (20:28)
[2019-05-23] MEDS: SENNA/DOCUSATE SODIUM TABLET 1 TAB PO (20:29)
[2019-05-24] VITALS (9 sets, daily range): BP systolic 124–134; BP diastolic 55–70; PULSE 57–66; RESP 16–18; TEMP 36.2–36.4; O2SAT 91–96
[2019-05-24] MEDS: IPRATROPIUM 0.5 MG/ALBUTEROL SULFATE 2.5 MG AMPUL.NEB 3 ML INHALATION ×2 (00:06→05:42)
[2019-05-24] MEDS: SODIUM CHLORIDE 0.45% 1,000 ML 150 ML IV CONT (02:14)
[2019-05-24 06:01] LABS: Hematocrit 35.6 % (37.0-46.0); Hemoglobin 11.5 g/dL (12.4-15.3); Mean Corpuscular HGB Conc 32.3 g/dL (32.0-36.0); Mean Corpuscular Hemoglobin 31.5 pg (27.0-31.0); Mean Corpuscular Volume 97.5 fL (78.0-102.0); Mean Platelet Volume 10.1 fl (8.7-11.0); Platelet Count Result 257 K/mm3 (150-420); Red Blood Count 3.65 M/mm3 (4.70-6.10); Red Cell Distribution Width 13.9 % (11.6-14.4); White Blood Count 6.4 K/mm3 (4.8-10.8)
[2019-05-24 06:19] LABS: Anion Gap 10.4 mmol/L (7-16); Blood Urea Nitrogen 27 mg/dL (7-18); Calcium 9.6 mg/dL (8.5-10.1); Carbon Dioxide 27 mmol/L (21-32); Chloride 109 mmol/L (98-108); Estimated CRCL calculation 41 ml/min; Estimated Glomerular Filt Rate 36; Glucose 95 mg/dL (70-99); Osmolality Calculated 299 mOsm/kg (285-295); Potassium 4.4 mmol/L (3.5-5.1); Sodium 142 mmol/L (136-145)
[2019-05-24] MEDS: LEVOTHYROXINE SODIUM 75 MCG TABLET PO (09:20)
[2019-05-24] MEDS: ASPIRIN 325 MG ENTERIC TABLET PO (09:20)
[2019-05-24] MEDS: ATORVASTATIN 10 MG TABLET PO (09:20)
[2019-05-24] MEDS: carvediloL 12.5 MG TABLET 25 MG PO (09:21)
[2019-05-24] MEDS: allopurinoL 100 MG TABLET 200 MG PO (09:21)
[2019-05-24] MEDS: PANTOPRAZOLE 40 MG TABLET PO (09:21)
[2019-05-24] MEDS: FAMOTIDINE 20 MG TABLET 40 MG PO (09:21)
[2019-05-24] MEDS: MAGNESIUM OXIDE 400 MG TABLET PO (09:21)
[2019-05-24] MEDS: VITAMIN B COMPLEX CAPSULE 1 CAP PO (09:22)
[2019-05-24] MEDS: lisinopriL 10 MG TABLET PO (09:22)
[2019-05-24] MEDS: MEMANTINE 5 MG TABLET PO (09:22)
[2019-05-24] MEDS: BISACODYL 5 MG TABLET EC PO (09:27)
[2019-05-24 10:14] LABS: Prostate Specific Antigen < 0.1 ng/mL (< OR = 4.0)
--- NOTE | 2019-05-24 12:33 | PM.DS ---
DS: Diagnosis Admitting Diagnosis Admitting Diagnosis: Urinary tract infection, site not specified Discharge Diagnosis (1) Acute renal failure: Onset Date: ~05/21/19 Code(s): N17.9 - Acute kidney failure, unspecified Status: Acute Assessment and Plan: Able to get a copy of the patient's last office with his PCP Dr. Gonzalez. This shows he has a known history of Chronic Kidney Disease, stage 3 (moderate) and history of mild cognitive impairment. Acute on Chronic Renal Failure. Most likely worsened by Dehydration. Avoid Nephrotoxic medications and avoiding IV contrast dye Patient is dehydrated and with his memory dsyxn. likely has been for some time. He will have to get enough water in daily - spoke at length with and patient about hydration reminders at home and volume he needs. No current s/s of CHF. ECHO on 05/22/19 shows possible apical hypokinesis, LV size and fxn normal with mild increased LV wall thickness, EF 55-60%, Grade I diastolic dysfunction, Moderate aortic valve sclerosis, no pericardial effusion. Decreased Allopurinol from 300 mg to 200 mg daily. He does have a consistent gout history with elevated uric acid. Discontinued his Lisinopril for now - BPs are controlled at this time. Continue Lipitor 10 mg daily. Trigylcerides remain elevated enough to treat, yet want to avoid worsening renal fxn. Improved. Creatinine 1.94 at admission, then 1.89, 2.10, and 1. 84 today. He is taking in at least 1 L or more orally on his own. Able to hydrate himself now, but will need frequent reminders - is aware. PT evaluated him today and he was able to ambulate many feet down the hospital love using his walker with no other assistance. He appeared to be steady and balanced enough for safe ambulation if he uses a walker. His was able to get a walker today and has it in their car now. (2) UTI (urinary tract infection): Onset Date: ~05/21/19 Code(s): N39.0 - Urinary tract infection, site not specified Status: Acute Assessment and Plan: IMPROVED and RESOLVED. Urine analysis is 2+ for bacteria, 7-9 WBC - showing evidence of UTI. urine / blood culture showed no growth IVFs and oral hydration. received 3 days of IV Rocephin, no need for home antibiotics. (3) Hypercalcemia: Onset Date: Unknown Code(s): E83.52 - Hypercalcemia Status: Acute Assessment and Plan: RESOLVED. Calcium elevated at 10.4 at admission, but after rehydration (oral and IVFs) and stabilized, Calcium levels are WNL at 10.0, 10.1, and 9.6 today. PTH lab remains pending Denies having any current pain or leg cramps during his hospitalization. He needs to have an AURORA and Venous Dopplers of his lower extremities after discharge and discuss with his PCP at [facility] getting a Referral for a consultation with an Orthopedic surgeon and/or Vascular Surgeon . He is considering seeing a Surgeon at [facility] to have his parathyroid re-evaluated. I encouraged him to follow up on that after discharge. (4) Near syncope: Onset Date: ~05/21/19 Code(s): R55 - Syncope and collapse Status: Acute Assessment and Plan: IMPROVED and RESOLVED. Denies LOC, denies fall, dropped to his knees earlier on the day of admission. No return of symptoms during this hospitalization. Likely related to Acute on Chronic Renal Failure or Dehydration or Hypoglycemia or Hyperglycemia or UTI. No diarrhea or incontinence of stools during his hospitalization. Known history of CKD, hyperglycemia and hypercalemia. Telemetry monitoring showed no ectopy or arrhythmias. Troponins and EKGs were WNL. blood/sputum/urine cultures clear. glucose monitoring via labs showed stable levels. Echo stable and results noted above. (5) Confusion: Code(s): R41.0 - Disorientation, unspecified Status: Acute Assessment and Plan: IMPROVED. Possibly related to Generalized Deconditioning / Weakness or UTI and/or Dehydrat
[2019-05-24 12:49] LABS: Vitamin D 25 Hydroxy 18 ng/mL (30-100)
[2019-05-26 12:50] LABS: Parathyroid Intact 301 pg/mL (14-64)
[2019-05-28 04:33] LABS: Vitamin B6 7.9 ng/mL (2.1-21.7)
--- NOTE | 2019-05-29 12:27 | PC.NURSE ---
Discharge call back [phone] Talked with patient and . No questions about DC instructions. Meds kicking in, is getting better, have and appointment next week for carotid and Neuro DR in Jul.
[2019-06-02 10:16] LABS: Vitamin B2 9.8 nmol/L (6.2-39.0)
== END 2019-05-24 13:45 | disposition home health service (06) | DRG 683 ==
LOC: CHSED 13:13 → CHS2ND 13:25
PROVIDERS: Nurse Practitioner; Admitting Provider Emergency Medicine; Emergency Provider Emergency Medicine; PCP Internal Medicine; Visit Provider Surgery
DX: N17.9 Acute kidney failure, unspecified (principal); N39.0 Urinary tract infection, site not specified; E86.0 Dehydration; E83.52 Hypercalcemia; R41.0 Disorientation, unspecified; R19.7 Diarrhea, unspecified; G30.9 Alzheimer's disease, unspecified; F02.80 Dementia in other diseases classified elsewhere, unspecified severity, without behavioral disturbance, psychotic disturbance, mood disturbance, and anxiety
CPT/HCPCS: 36415; 36600; 70450; 70551; 71045; 80048; 80053; 80061; 81001; 82140; 82306; 82550; 82553; 82607; 82746; 82805; 83036; 83519; 83735; 83880; 83970; 84100; 84153; 84207; 84252; 84443; 84484; 85025; 85027; 85610; 85730; 87040; 87086; 93005; 94640; 96361; 96365; 96366; 96375; 97161; 97165; 99283; 99285; A9270; C8929; J0696; J2405; J7030